=== PATIENT | female | born 1960 | race Caucasian/White ===

== ENCOUNTER 2017-12-23 11:59 | Outpatient (CLI) | payer BC ==
[2017-12-23 13:42] LABS: #Basophils 0.1 thou/uL (0.0-0.2); #Eosinphils 0.1 thou/uL (0.0-0.7); #Lymphocytes 1.9 thou/uL (1.20-3.40); #Monocytes 0.7 thou/uL (0.11-0.59); %Basophils 0.6 % (0.0-1.0); %Eosinophils 0.8 % (0.0-10.0); %Lymphocytes 22.1 % (21.0-51.0); %Monocytes 7.6 % (0.0-10.0); %Neutrophils 68.8 % (42.0-75.0); Hemoglobin 14.6 g/dL (12.0-16.0); Mean Corpuscular HGB CONC 32.4 g/dL (32.0-36.0); Mean Corpuscular Hemoglobin 29.2 pg (27.0-31.0); Mean Platelet Volume 7.2 fL (7.4-10.4); Platelet Count 269 thou/uL (130-400); RBC Distribution Width 11.5 % (11.5-14.5); Red Blood Cell (RBC) Count 5.01 mill/uL (4.20-5.40); White Blood Cell (WBC) Count 8.7 thou/uL (4.8-10.8)
[2017-12-23 13:54] LABS: Bilirubin Negative (Negative); Blood, Urine Negative (Negative); Clarity TURBID (Clear); Glucose, Urine (Dipstick) Negative (Negative); Leukocyte Negative (Negative); Nitrite Negative (Negative); Protein, Urine (Dipstick) Negative (Neg-Trace); Specific Gravity, Urine 1.018 (1.002-1.036); Urobilinogen 0.2 mg/dL (0.2-1.0); pH, Urine 7.5 (5.0-9.0)
[2017-12-23 13:57] LABS: INR-International Normal Ratio 0.9; Prothrombin Time 12.4 SEC (12.0-14.7)
[2017-12-23 13:59] LABS: Bacteria/HPF None Seen HPF (None Seen); Hyaline Casts/LPF 0-3 HYALINE CAST LPF (0-3 Hyaline); Pathc Cast-AUWi Flag 0.14 (0-2.49); Squamous Epithelial 0-3 HPF (0-3); WBC/HPF 0-3 HPF (0-3)
[2017-12-23 14:01] LABS: Anion Gap 11 mmol/L (10-20); BUN (Urea Nitrogen) 18 mg/dL (9.8-20.1); Calc. Creatinine Clearance 0 mL/min (70-130); Calcium 9.7 mg/dL (7.8-10.44); Carbon Dioxide 29 mmol/L (22-29); Chloride 104 mmol/L (98-107); Estimated GFR-MDRD 59; Glucose 100 mg/dL (70-105); Potassium 4.1 mmol/L (3.5-5.1); Sodium 140 mmol/L (136-145)
[2017-12-23 14:23] LABS: Crystals/HPF 2+ AMORPH PHOS HPF (Negative); RBC/HPF 0-3 HPF (0-3)
== END 2017-12-23 12:00 | disposition home or self-care (01) ==
LOC: LABBT 11:59
PROVIDERS: ATTEND Orthopaedic Surgery
DX: Z01.818 Encounter for other preprocedural examination (principal); M17.11 Unilateral primary osteoarthritis, right knee
CPT/HCPCS: 80048; 81001; 85025; 85610; 87081; 93005; 93010

== ENCOUNTER 2017-12-23 13:00 | Inpatient (IN) | payer BC ==
[2018-01-03] MEDS ORDERED: Sodium Chloride 0.9% 100 ML ONE (06:19)
[2018-01-03] MEDS ORDERED: CEFAZOLIN 2 GM/50 ML BAG ONE (06:19)
[2018-01-03] MEDS ORDERED: Tranexamic Acid 1,000 MG/10 ML VIAL ONE ×2 (06:19→09:10)
[2018-01-03] MEDS ORDERED: Midazolam HCl 2 mg/2 ml Vial ONE (06:21)
[2018-01-03] MEDS ORDERED: Fentanyl 100 MCG/2 ML VIAL ONE ×3 (06:21→09:39)
[2018-01-03] MEDS ORDERED: Bupivacaine PF 0.5% 30 ML VIAL ONE (06:28)
[2018-01-03] MEDS ORDERED: Vancomycin HCl 1.5 GM in Sodium Chloride 0.9% 250 ML 300 ML IVPB SCH ×2 (06:30→20:00)
[2018-01-03] MEDS ORDERED: Ondansetron PF 4 MG/2 ML Vial IVP PRN ×2 (07:17→07:21)
[2018-01-03] MEDS ORDERED: traMADol HCl 50 MG TAB PO PRN ×3 (07:17→07:21)
[2018-01-03] MEDS ORDERED: Zolpidem Tartrate 5 MG TAB PO PRN ×3 (07:17→08:09)
[2018-01-03] MEDS ORDERED: Promethazine HCl 25 MG/ML VIAL IM PRN ×3 (07:17→09:15)
[2018-01-03] MEDS ORDERED: Ropivacaine HCl/PF 250 ML in Premix Bag 1 BAG NERVE BLCK SCH (07:17)
[2018-01-03] MEDS ORDERED: Ketorolac Tromethamine 30 MG/ML VIAL IVP PRN (07:17)
[2018-01-03] MEDS ORDERED: Fentanyl 100 MCG/2 ML VIAL IV PRN (07:20)
[2018-01-03] MEDS ORDERED: diphenhydrAMINE 25 MG CAP PO PRN (07:21)
[2018-01-03] MEDS ORDERED: HYDROcodone/Acetaminophen 10/325 mg Tablet PO PRN ×2 (07:21)
[2018-01-03] MEDS ORDERED: Acetaminophen 325 MG TAB PO PRN (07:21)
[2018-01-03] MEDS ORDERED: Fentanyl 100 MCG/2 ML VIAL SLOW IVP PRN (07:21)
[2018-01-03] MEDS ORDERED: CEFAZOLIN/Water 2 GM/20 ML SYRINGE SLOW IVP SCH (07:30)
[2018-01-03] MEDS ORDERED: Tranexamic Acid 1,000 MG in Sodium Chloride 0.9% 100 ML IVPB SCH (07:30)
[2018-01-03] MEDS ORDERED: Ondansetron HCl/PF 4 MG/2 ML Vial IVP PRN (09:15)
[2018-01-03] MEDS ORDERED: Promethazine HCl 25 MG/ML VIAL SLOW IVP PRN (09:15)
--- NOTE | 2018-01-03 09:38 | OP ---
DATE OF PROCEDURE: 01/03/2018 PREOPERATIVE DIAGNOSIS: Right knee osteoarthrosis. POSTOPERATIVE DIAGNOSIS: Right knee osteoarthrosis. PROCEDURE PERFORMED: Right total knee replacement using Trooval pinless navigation. SURGEON: Dav Rowe M.D. METAPHYSICIAN: Bryson Berry PA-C. BLOOD LOSS: Minimal. COMPLICATIONS: None. ANESTHESIA: She had general anesthetic, she also had a preoperative block. DISPOSITION: She did go to recovery room in stable condition. IMPLANTS: To the right knee, Efrne Triathlon knee system, the femur is a size 4 right cruciate ret aining femur, we used a size 4 universal tibial baseplate. We used a 4 x 11 mm CS X3 tibial bearing and an asymmetric 32 x 10 X3 patella. CONDITION: She did go to recovery room in stable condition. INDICATIONS: A 57-year-old female who comes in complaining of years of right knee pain and stiffness and has failed nonoperative treatment. At this time, she wished to have a knee replacement. PROCEDURE IN DETAIL: After all appropriate consent forms were explained and signed, the patient was t aken back to the Operating Room and at this time was given general anesthetic. Once the level of anes thesia was appropriate, a well-padded tourniquet was placed on the right leg and the leg was then pre pped and draped in standard surgical fashion. The limb was exsanguinated and tourniquet taken up to 3 00 mmHg. Midline incision was made with a 10 blade down through the skin and subcutaneous tissue. Bov ie electrocautery was used to coagulate any brisk venous bleeding. A new blade was used to make a med ial parapatellar arthrotomy. Small subperiosteal release was performed medially and excess fat pad wa s removed. The knee was flexed up to gain access to the femur. The femur was navigated and distal fem oral resection was made. Epicondylar access was used to align our sizing jig and this was pinned in p mack. We sized our femur to be a size 4 right cruciate retaining femur. 4:1 cutting block was applie d and pinned. Anterior and posterior chamfer cuts were then made. We navigated out our proximal tibia and made our proximal tibial resection. Spreaders were used to remove any posterior osteophytes off the back of the femur as well as remaining meniscal tissue. A long alignment neeta was then used to ach ieve correct rotation of our tibial baseplate and a size 4 universal tibial baseplate was chosen. Thi s was pinned in place. We trialed the polyethylene and a 4 x 11 mm CS X3 tibial bearing polyethylene gave us full extension and good stability throughout range of motion. Two towel clips and a saw were used to cut our patella. Three lug nuts were drilled and an asymmetric 32 x 10 X3 patella was trialed which sat nicely in the trochlear groove. We then drilled our femur and punched our tibia. All compo nents were removed. The knee was thoroughly irrigated and dried. Cement was mixed into the cement gun on the back table. Components were then placed. The knee was held out in full extension until the ce ment had dried. All excess bone cement was removed. Multiple #2 Vicryl stitches as well as a Quill w as used to close our extensor mechanism. 0 Quill followed by a running Monoderm was then used to clos e the skin. Surgicel glue was then used on the skin. Once this had dried, soft tissue dressing was ap plied to the limb, tourniquet was let down, and the toes pinked up nicely. The patient was then awak ened and taken to the Recovery Room in stable condition. All counts were correct at the end of the ca se. The patient did receive preoperative IV antibiotics. The patient was injected with Exparel for p ostoperative pain relief.
[2018-01-03 10:42] VITALS: BMI 36.1
[2018-01-03] MEDS: Aspirin 81 mg Enteric Coated Tablet PO SCH ×2 (11:08→20:51)
[2018-01-03] MEDS: Senokot S 8.6-50 MG TAB PO SCH ×2 (11:08→20:42)
[2018-01-03] MEDS: Sodium Chloride 0.9% 1,000 ML IV SCH ×3 (11:09→16:58)
[2018-01-03] MEDS: Ferrous Gluconate 324 MG TAB PO SCH ×2 (11:10→20:43)
[2018-01-03] MEDS ORDERED: Ropivacaine 0.5% HCl/PF (150 MG/30 ML VIAL) ONE (12:14)
[2018-01-03] MEDS ORDERED: Bupivacaine 0.25% HCL 30 ML VIAL ONE (12:14)
[2018-01-03] MEDS ORDERED: PROPOFOL 200 MG/20 ML VIAL ONE (12:30)
[2018-01-03] MEDS ORDERED: Ondansetron PF 4 MG/2 ML Vial ONE (12:30)
[2018-01-03] MEDS ORDERED: Lidocaine 1% PF 5 ML VIAL ONE (12:30)
[2018-01-03] MEDS ORDERED: Dexamethasone 20 MG/5 ML VIAL ONE (12:30)
[2018-01-03] MEDS ORDERED: ePHEDrine/0.9% NaCl/PF SYRINGE 50 mg/10 ml ONE (12:30)
[2018-01-03] MEDS ORDERED: Metoclopramide HCl 10 MG/2 ML VIAL ONE (12:30)
[2018-01-03] MEDS: CEFAZOLIN 2 GM/50 ML-DEXTROSE 2 GM in Premix Bag 1 BAG IVPB SCH ×2 (13:21→21:00)
[2018-01-03] MEDS ORDERED: Ketorolac Tromethamine 30 MG/ML VIAL IVP SCH (14:00)
--- NOTE | 2018-01-03 18:11 | PDOC.PN ---
- Subjective Encounter Start Date: 01/03/18 Encounter Start Time: 14:00 Subjective: pt up in bed no complains - Objective Vital Signs & Weight: Vital Signs (12 hours) Temp Pulse Resp BP Pulse Ox 01/03/18 14:55 97.9 F 73 16 128/75 97 01/03/18 11:55 98.0 F 66 16 115/77 99 01/03/18 10:25 97.7 F 63 16 144/74 H 99 Weight Weight 224 lb I&O: 01/02/18 01/03/18 01/04/18 06:59 06:59 06:59 Intake Total 1440 Output Total 1600 Balance -160 Phys Exam - Physical Examination Neck: no nodes, no JVD, supple, full ROM Respiratory: no wheezing, no rales, no rhonchi, wheezing present, clear to auscultation bilateral Cardiovascular: RRR, no significant murmur, no rub, gallop, irregular Gastrointestinal: soft, non-tender, no distention, positive bowel sounds Musculoskeletal: no edema, pulses present, edema present right leg wrapped in carl Neurological: non-focal, normal sensation, moves all 4 limbs Dx/Plan (1) Diabetes Code(s): E11.9 - TYPE 2 DIABETES MELLITUS WITHOUT COMPLICATIONS Status: Acute (2) Depression Code(s): F32.9 - MAJOR DEPRESSIVE DISORDER, SINGLE EPISODE, UNSPECIFIED Status : Acute (3) Prolonged Q-T interval on ECG Code(s): R94.31 - ABNORMAL ELECTROCARDIOGRAM [ECG] [EKG] Status: Acute - Plan will continue metformin for her bm -: she is on ziaprasidone for depression -: she did have prolong qtc, will monitor electrolytes closely. * . Review of Systems - Review of Systems Cardiovascular: negative: chest pain, palpitations, orthopnea, paroxysmal nocturnal dyspnea, edema, light headedness, other Gastrointestinal: negative: Nausea, Vomiting, Abdominal Pain, Diarrhea, Constipation, Melena, Hematochezia, Other Genitourinary: negative: Dysuria, Frequency, Incontinence, Hematuria, Retention , Other - Medications/Allergies Allergies/Adverse Reactions: Allergies Allergy/AdvReac Type Severity Reaction Status Date / Time aloe vera Allergy Verified 12/23/17 12:24 Sulfa (Sulfonamide Allergy Verified 12/24/17 10:15 Antibiotics) Medications: Current Medications Acetaminophen (Tylenol) 650 mg PO Q4H PRN PRN Reason: GASPAR/ T > 101F; Mild Pain (1-3) Hydrocodone Bitart/Acetaminophen ([place] 10/325) 1 tab PO Q4H PRN PRN Reason: Pain (1-3) Hydrocodone Bitart/Acetaminophen ([place] 10/325) 2 tab PO Q4H PRN PRN Reason: PAIN (4-6) Aspirin (Ecotrin) 81 mg PO BID [facility] Last Admin: 01/03/18 11:08 Dose: Not Given Diphenhydramine HCl (Benadryl) 25 mg PO Q6H PRN PRN Reason: Itching Fentanyl (Sublimaze) 50 mcg IV Q1H PRN PRN Reason: FOR BREAKTHROUGH PAIN Ferrous Gluconate (Fergon) 324 mg PO BID [facility] Last Admin: 01/03/18 11:10 Dose: Not Given Ropivacaine 250 ml/ Device 250 mls @ 0 mls/hr NERVE BLCK INF [facility] Sodium Chloride (Normal Saline 0.9%) 1,000 mls @ 100 mls/hr IV .Q10H [facility] Last Admin: 01/03/18 16:58 Dose: Not Given Vancomycin HCl 1.5 gm/ Sodium (Chloride) 300 mls @ 200 mls/hr IVPB 2000 [facility] Stop: 01/03/18 21:29 Cefazolin Sodium/Dextrose 2 gm (/ Device) 50 mls @ 100 mls/hr IVPB Q8HR [facility] Stop: 01/03/18 22:29 Last Admin: 01/03/18 13:21 Dose: 50 mls Iron/Minerals/Multivitamins (Theragran M) 1 tab PO DAILY [facility] Ketorolac Tromethamine (Toradol) 30 mg IVP Q6H PRN PRN Reason: Moderate Pain (4-6) Stop: 01/06/18 07:18 Metformin HCl (Glucophage Xr) 500 mg PO HS [facility] Montelukast Sodium (Singulair) 10 mg PO HS [facility] Ondansetron HCl (Zofran) 4 mg IVP Q6H PRN PRN Reason: Nausea/Vomiting Estradiol [Elestrin] (2 Pump) 0 each TD HS [facility] Oxybutynin Chloride ([Gelnique] 1 Pack) 0 each TOP HS [facility] Promethazine HCl (Phenergan) 12.5 mg IM Q4H PRN PRN Reason: Nausea/Vomiting Senna/Docusate Sodium (Senokot S) 2 tab PO BID [facility] Last Admin: 01/03/18 11:08 Dose: Not Given Simvastatin (Zocor) 10 mg PO HS [facility] Sodium Chloride (Flush - Normal Saline) 10 ml IVF PRN PRN PRN Reason: Saline Flush Tramadol HCl (Ultram) 50 mg PO Q6H PRN PRN Reason: Mild Pain (1-3) Tramadol HCl (Ultram) 100 mg PO Q6H PRN PRN Reason: Moderate Pain 4-6 Ziprasidone (Geodon) 160 mg PO HS [facility] Zolpidem Tartrate (Ambien) 10 mg PO HSPRN PRN PRN Reason: Insomnia
[2018-01-03 19:18] LABS: Anion Gap 11 mmol/L (10-20); BUN (Urea Nitrogen) 12 mg/dL (9.8-20.1); Calc. Creatinine Clearance 124 mL/min (70-130); Calcium 9.1 mg/dL (7.8-10.44); Carbon Dioxide 27 mmol/L (22-29); Chloride 103 mmol/L (98-107); Estimated GFR-MDRD 74; Glucose 142 mg/dL (70-105); Potassium 4.2 mmol/L (3.5-5.1); Sodium 137 mmol/L (136-145)
[2018-01-03] MEDS: Simvastatin 5 MG TAB PO SCH (20:43)
[2018-01-03] MEDS: Montelukast Sodium 10 mg Tablet PO SCH (20:43)
[2018-01-03] MEDS: metFORMIN XR 500 MG TAB PO SCH (20:43)
[2018-01-03] MEDS ORDERED: ESTRADIOL TD SCH (21:00)
[2018-01-03] MEDS ORDERED: OXYBUTYNIN CHLORIDE TOP SCH (21:00)
[2018-01-03] MEDS: HYDROcodone/Acetaminophen 10/325 mg Tablet PO PRN (21:10)
[2018-01-04] MEDS: Sodium Chloride 0.9% 1,000 ML IV SCH ×3 (04:04→21:40)
[2018-01-04 06:39] LABS: Hemoglobin 12.6 g/dL (12.0-16.0); Mean Corpuscular HGB CONC 35.2 g/dL (32.0-36.0); Mean Corpuscular Hemoglobin 31.4 pg (27.0-31.0); Mean Corpuscular Volume 89.1 fL (78.0-98.0); Mean Platelet Volume 7.2 fL (7.4-10.4); Platelet Count 251 thou/uL (130-400); RBC Distribution Width 11.2 % (11.5-14.5); Red Blood Cell (RBC) Count 4.02 mill/uL (4.20-5.40); White Blood Cell (WBC) Count 10.9 thou/uL (4.8-10.8)
[2018-01-04] MEDS: Senokot S 8.6-50 MG TAB PO SCH ×2 (07:38→21:39)
[2018-01-04] MEDS: Multivitamin W/ Minerals 1 TAB PO SCH (07:38)
[2018-01-04] MEDS: Ferrous Gluconate 324 MG TAB PO SCH ×2 (07:38→21:39)
[2018-01-04] MEDS: HYDROcodone/Acetaminophen 10/325 mg Tablet PO PRN ×2 (07:39→17:15)
[2018-01-04] MEDS: Aspirin 81 mg Enteric Coated Tablet PO SCH ×2 (07:39→21:39)
--- NOTE | 2018-01-04 12:22 | PDOC.PN ---
- Subjective Encounter Start Date: 01/04/18 Encounter Start Time: 11:15 Subjective: pt up in chair no complains - Objective Vital Signs & Weight: Vital Signs (12 hours) Temp Pulse Resp BP BP Pulse Ox 01/04/18 11:52 98.1 F 63 18 124/84 98 01/04/18 07:31 98.1 F 71 16 122/70 95 01/04/18 04:00 99.7 F H 72 18 112/74 95 Weight Weight 224 lb I&O: 01/03/18 01/04/18 01/05/18 06:59 06:59 06:59 Intake Total 4070 Output Total 4400 Balance -330 Result Diagrams: 01/04/18 05:52 01/03/18 18:40 Phys Exam - Physical Examination Neck: no nodes, no JVD, supple, full ROM Respiratory: no wheezing, no rales, no rhonchi, wheezing present, clear to auscultation bilateral Cardiovascular: RRR, no significant murmur, no rub, gallop, irregular Gastrointestinal: soft, non-tender, no distention, positive bowel sounds Dx/Plan (1) Diabetes Code(s): E11.9 - TYPE 2 DIABETES MELLITUS WITHOUT COMPLICATIONS Status: Acute (2) Depression Code(s): F32.9 - MAJOR DEPRESSIVE DISORDER, SINGLE EPISODE, UNSPECIFIED Status : Acute (3) Prolonged Q-T interval on ECG Code(s): R94.31 - ABNORMAL ELECTROCARDIOGRAM [ECG] [EKG] Status: Acute - Plan ekg still indicates prolong qt. will discontinue zofran -: pt's home medication does cause prolong qt and pt will need follow up with -: primary to possible adjust dose or change meds. I have instructed pt about -: this. electrolytes are normal. will continue to montior. * . Review of Systems - Review of Systems Respiratory: negative: Cough, Dry, Shortness of Breath, Hemoptysis, SOB with Excertion, Pleuritic Pain, Sputum, Wheezing Cardiovascular: negative: chest pain, palpitations, orthopnea, paroxysmal nocturnal dyspnea, edema, light headedness, other Gastrointestinal: negative: Nausea, Vomiting, Abdominal Pain, Diarrhea, Constipation, Melena, Hematochezia, Other Genitourinary: negative: Dysuria, Frequency, Incontinence, Hematuria, Retention , Other - Medications/Allergies Allergies/Adverse Reactions: Allergies Allergy/AdvReac Type Severity Reaction Status Date / Time aloe vera Allergy Verified 12/23/17 12:24 Sulfa (Sulfonamide Allergy Verified 12/24/17 10:15 Antibiotics) Medications: Current Medications Acetaminophen (Tylenol) 650 mg PO Q4H PRN PRN Reason: GASPAR/ T > 101F; Mild Pain (1-3) Hydrocodone Bitart/Acetaminophen ([place] 10/325) 1 tab PO Q4H PRN PRN Reason: Pain (1-3) Hydrocodone Bitart/Acetaminophen ([place] 10/325) 2 tab PO Q4H PRN PRN Reason: PAIN (4-6) Last Admin: 01/04/18 07:39 Dose: 2 tab Aspirin (Ecotrin) 81 mg PO BID [facility] Last Admin: 01/04/18 07:39 Dose: 81 mg Diphenhydramine HCl (Benadryl) 25 mg PO Q6H PRN PRN Reason: Itching Fentanyl (Sublimaze) 50 mcg IV Q1H PRN PRN Reason: FOR BREAKTHROUGH PAIN Ferrous Gluconate (Fergon) 324 mg PO BID [facility] Last Admin: 01/04/18 07:38 Dose: 324 mg Ropivacaine 250 ml/ Device 250 mls @ 0 mls/hr NERVE BLCK INF [facility] Last Admin: 01/04/18 09:50 Dose: 250 mls Sodium Chloride (Normal Saline 0.9%) 1,000 mls @ 100 mls/hr IV .Q10H [facility] Last Admin: 01/04/18 04:04 Dose: Not Given Iron/Minerals/Multivitamins (Theragran M) 1 tab PO DAILY [facility] Last Admin: 01/04/18 07:38 Dose: 1 tab Ketorolac Tromethamine (Toradol) 30 mg IVP Q6H PRN PRN Reason: Moderate Pain (4-6) Stop: 01/06/18 07:18 Metformin HCl (Glucophage Xr) 500 mg PO HS [facility] Last Admin: 01/03/18 20:43 Dose: 500 mg Montelukast Sodium (Singulair) 10 mg PO HS [facility] Last Admin: 01/03/18 20:43 Dose: 10 mg Estradiol [Elestrin] (2 Pump) 0 each TD HS [facility] Oxybutynin Chloride ([Gelnique] 1 Pack) 0 each TOP HS [facility] Promethazine HCl (Phenergan) 12.5 mg IM Q4H PRN PRN Reason: Nausea/Vomiting Senna/Docusate Sodium (Senokot S) 2 tab PO BID [facility] Last Admin: 01/04/18 07:38 Dose: 2 tab Simvastatin (Zocor) 10 mg PO HS [facility] Last Admin: 01/03/18 20:43 Dose: 10 mg Sodium Chloride (Flush - Normal Saline) 10 ml IVF PRN PRN PRN Reason: Saline Flush Tramadol HCl (Ultram) 50 mg PO Q6H PRN PRN Reason: Mild Pain (1-3) Tramadol HCl (Ultram) 100 mg PO Q6H PRN PRN Reason: Moderate Pain 4-6 Ziprasidone (Geodon) 160 mg PO HS [facility] Last Admin: 01/03/18 21:00 Dose: 160 mg Zolpidem Tartrate (Ambien) 10 mg PO HSPRN PRN PRN Reason: Insomnia
--- NOTE | 2018-01-04 13:15 | EKG ---
Test Reason : Blood Pressure : / mmHG Vent. Rate : 067 BPM Atrial Rate : 067 BPM P-R Int : 136 ms QRS Dur : 104 ms QT Int : 494 ms P-R-T Axes : 065 -06 096 degrees QTc Int : 521 ms Normal sinus rhythm T wave abnormality, consider anterolateral ischemia Prolonged QT Abnormal ECG When compared with ECG of 23-DEC-2017 13:03, Criteria for Septal infarct are no longer Present T wave inversion no longer evident in Inferior leads T wave inversion less evident in Lateral leads Confirmed by JEANNINE ZAVALETA, SNicolas (4) on 01/04/2018 1:14:43 PM Referred By: JOHN Confirmed By:DR. Kobe PAEZ MD
[2018-01-04] MEDS: metFORMIN XR 500 MG TAB PO SCH (21:39)
[2018-01-04] MEDS: Montelukast Sodium 10 mg Tablet PO SCH (21:39)
[2018-01-04] MEDS: Simvastatin 5 MG TAB PO SCH (21:39)
[2018-01-05 05:43] LABS: Hemoglobin 13.9 g/dL (12.0-16.0); Mean Corpuscular HGB CONC 34.7 g/dL (32.0-36.0); Mean Corpuscular Volume 89.4 fL (78.0-98.0); Platelet Count 302 thou/uL (130-400); RBC Distribution Width 11.3 % (11.5-14.5); Red Blood Cell (RBC) Count 4.49 mill/uL (4.20-5.40); White Blood Cell (WBC) Count 13.9 thou/uL (4.8-10.8)
[2018-01-05] MEDS: HYDROcodone/Acetaminophen 10/325 mg Tablet PO PRN ×2 (07:44→12:03)
[2018-01-05] MEDS: Multivitamin W/ Minerals 1 TAB PO SCH (07:46)
[2018-01-05] MEDS: Senokot S 8.6-50 MG TAB PO SCH (07:46)
[2018-01-05] MEDS: Aspirin 81 mg Enteric Coated Tablet PO SCH (07:47)
[2018-01-05] MEDS: Ferrous Gluconate 324 MG TAB PO SCH (07:47)
[2018-01-05] MEDS: Sodium Chloride 0.9% 1,000 ML IV SCH (08:47)
[2018-01-05 13:12] VITALS: BP 115/67; TEMP 98.1
--- NOTE | 2018-01-05 13:54 | PDOC.PN ---
- Subjective Encounter Start Date: 01/05/18 Encounter Start Time: 10:15 Subjective: pt up in chair no complains - Objective Vital Signs & Weight: Vital Signs (12 hours) Temp Pulse Resp BP BP Pulse Ox 01/05/18 13:08 98.1 F 68 16 115/67 91 L 01/05/18 11:18 98.5 F 79 20 139/87 96 01/05/18 07:48 99.5 F 87 16 128/73 97 01/05/18 04:00 98.3 F 86 16 127/83 93 L Weight Admit Weight 224 lb Weight 224 lb I&O: 01/04/18 01/05/18 01/06/18 06:59 06:59 06:59 Intake Total 4070 2040 480 Output Total 4400 800 600 Balance -330 1240 -120 Result Diagrams: 01/05/18 05:22 01/03/18 18:40 Phys Exam - Physical Examination Neck: no nodes, no JVD, supple, full ROM Respiratory: no wheezing, no rales, no rhonchi, wheezing present, clear to auscultation bilateral Cardiovascular: RRR, no significant murmur, no rub, gallop, irregular Gastrointestinal: soft, non-tender, no distention, positive bowel sounds Dx/Plan (1) Diabetes Code(s): E11.9 - TYPE 2 DIABETES MELLITUS WITHOUT COMPLICATIONS Status: Acute (2) Depression Code(s): F32.9 - MAJOR DEPRESSIVE DISORDER, SINGLE EPISODE, UNSPECIFIED Status : Acute (3) Prolonged Q-T interval on ECG Code(s): R94.31 - ABNORMAL ELECTROCARDIOGRAM [ECG] [EKG] Status: Acute - Plan pt needs to follow up with pcp for her prolong qtc -: i have informed her of that and have informed ortho PA. -: repeat ekg qtc has improved current qtc is 482 * . Review of Systems - Review of Systems Respiratory: negative: Cough, Dry, Shortness of Breath, Hemoptysis, SOB with Excertion, Pleuritic Pain, Sputum, Wheezing Cardiovascular: negative: chest pain, palpitations, orthopnea, paroxysmal nocturnal dyspnea, edema, light headedness, other Gastrointestinal: negative: Nausea, Vomiting, Abdominal Pain, Diarrhea, Constipation, Melena, Hematochezia, Other Genitourinary: negative: Dysuria, Frequency, Incontinence, Hematuria, Retention , Other - Medications/Allergies Allergies/Adverse Reactions: Allergies Allergy/AdvReac Type Severity Reaction Status Date / Time aloe vera Allergy Verified 12/23/17 12:24 Sulfa (Sulfonamide Allergy Verified 12/24/17 10:15 Antibiotics) Medications: Current Medications Acetaminophen (Tylenol) 650 mg PO Q4H PRN PRN Reason: GASPAR/ T > 101F; Mild Pain (1-3) Hydrocodone Bitart/Acetaminophen ([place] 10/325) 1 tab PO Q4H PRN PRN Reason: Pain (1-3) Last Admin: 01/05/18 12:03 Dose: 1 tab Hydrocodone Bitart/Acetaminophen ([place] 10/325) 2 tab PO Q4H PRN PRN Reason: PAIN (4-6) Last Admin: 01/04/18 07:39 Dose: 2 tab Aspirin (Ecotrin) 81 mg PO BID [facility] Last Admin: 01/05/18 07:47 Dose: 81 mg Diphenhydramine HCl (Benadryl) 25 mg PO Q6H PRN PRN Reason: Itching Fentanyl (Sublimaze) 50 mcg IV Q1H PRN PRN Reason: FOR BREAKTHROUGH PAIN Ferrous Gluconate (Fergon) 324 mg PO BID [facility] Last Admin: 01/05/18 07:47 Dose: 324 mg Ropivacaine 250 ml/ Device 250 mls @ 0 mls/hr NERVE BLCK INF [facility] Last Admin: 01/04/18 09:50 Dose: 250 mls Sodium Chloride (Normal Saline 0.9%) 1,000 mls @ 100 mls/hr IV .Q10H [facility] Last Admin: 01/05/18 08:47 Dose: Not Given Iron/Minerals/Multivitamins (Theragran M) 1 tab PO DAILY [facility] Last Admin: 01/05/18 07:46 Dose: 1 tab Ketorolac Tromethamine (Toradol) 30 mg IVP Q6H PRN PRN Reason: Moderate Pain (4-6) Stop: 01/06/18 07:18 Metformin HCl (Glucophage Xr) 500 mg PO HS [facility] Last Admin: 01/04/18 21:39 Dose: 500 mg Montelukast Sodium (Singulair) 10 mg PO HS [facility] Last Admin: 01/04/18 21:39 Dose: 10 mg Estradiol [Elestrin] (2 Pump) 0 each TD [facility] Oxybutynin Chloride ([Gelnique] 1 Pack) 0 each TOP HS [facility] Promethazine HCl (Phenergan) 12.5 mg IM Q4H PRN PRN Reason: Nausea/Vomiting Senna/Docusate Sodium (Senokot S) 2 tab PO BID [facility] Last Admin: 01/05/18 07:46 Dose: 2 tab Simvastatin (Zocor) 10 mg PO [facility] Last Admin: 01/04/18 21:39 Dose: 10 mg Sodium Chloride (Flush - Normal Saline) 10 ml IVF PRN PRN PRN Reason: Saline Flush Tramadol HCl (Ultram) 50 mg PO Q6H PRN PRN Reason: Mild Pain (1-3) Tramadol HCl (Ultram) 100 mg PO Q6H PRN PRN Reason: Moderate Pain 4-6 Ziprasidone (Geodon) 160 mg PO [facility] Last Admin: 01/04/18 21:39 Dose: 160 mg Zolpidem Tartrate (Ambien) 10 mg PO HSPRN PRN PRN Reason: Insomnia
--- NOTE | 2018-01-05 20:12 | EKG ---
Test Reason : Blood Pressure : / mmHG Vent. Rate : 076 BPM Atrial Rate : 076 BPM P-R Int : 130 ms QRS Dur : 096 ms QT Int : 432 ms P-R-T Axes : 061 -03 100 degrees QTc Int : 486 ms Normal sinus rhythm Prolonged QT Abnormal ECG When compared with ECG of 04-JAN-2018 07:34, No significant change was found Confirmed by JEANNINE ZAVALETA, SNicolas (4) on 01/05/2018 8:12:36 PM Referred By: JOHN Confirmed By:DR. Kobe PAEZ MD
== END 2018-01-05 14:57 | disposition home or self-care (01) | DRG 470 ==
LOC: SJJU 01-03 05:32
PROVIDERS: ADMIT Orthopaedic Surgery; ATTEND Orthopaedic Surgery
PROC: 0SRC0J9 Replacement of Right Knee Joint with Synthetic Substitute, Cemented, Open Approach (ICD-10-PCS; principal; 2018-01-03)
DX: M17.11 Unilateral primary osteoarthritis, right knee (principal); E11.9 Type 2 diabetes mellitus without complications; F32.9 Major depressive disorder, single episode, unspecified; R94.31 Abnormal electrocardiogram [ECG] [EKG]; Z88.2 Allergy status to sulfonamides; Z79.84 Long term (current) use of oral hypoglycemic drugs; Z79.899 Other long term (current) drug therapy; Z79.891 Long term (current) use of opiate analgesic; Z79.82 Long term (current) use of aspirin
CPT/HCPCS: 36415; 80048; 83735; 85027; 86850; 86900; 86901; 93005; 93010; 96374; C1713; C1776; G8978-GP-CK; G8979-GP-CI; J1100; J2001; J2250; J2405; J2704; J2765; J2795; J3010; J3370; J7050; S0020